=== PATIENT | male | born 1995 | race Caucasian/White ===

== ENCOUNTER 2020-02-06 14:53 | Emergency (ER) | payer MEDICAID ==
[~2020-02-06] VITALS: Ht 162.6 cm; Wt 63.7 kg
[2020-02-06 15:31] LABS: BASOPHILS # (AUTO) 0.1 X10'3 (0-0.2); BASOPHILS % (AUTO) 0.7 % (0-1); EOSINOPHILS # (AUTO) 0.3 X10'3 (0-0.9); EOSINOPHILS % (AUTO) 3.2 % (0-6); HEMATOCRIT 41.9 % (42.0-52.0); HEMOGLOBIN 13.9 g/dl (14.0-17.9); LYMPHOCYTES # (AUTO) 1.2 X10'3 (1.1-4.8); LYMPHOCYTES % (AUTO) 13.7 % (21-51); MEAN CORPUSCULAR HEMOGLOBIN 28.8 PG (27.0-31.0); MEAN CORPUSCULAR HGB CONC 33.2 g/dL (33.0-36.5); MEAN CORPUSCULAR VOLUME 86.6 FL (78-98); MEAN PLATELET VOLUME 6.9 FL (7.4-10.4); MONOCYTES # (AUTO) 0.6 X10'3 (0-0.9); NEUTROPHILS # (AUTO) 6.7 X10'3 (1.8-7.7); NEUTROPHILS % (AUTO) 75.4 % (42-75); PLATELET COUNT 394 X10'3 (140-440); RED BLOOD COUNT 4.83 X10'6 (4.70-6.10); RED CELL DISTRIBUTION WIDTH 12.7 % (11.5-14.5); WHITE BLOOD COUNT 8.9 X10'3 (4.5-11.0)
[2020-02-06 15:46] LABS: ALANINE AMINOTRANSFERASE 20 U/L (12-78); ALBUMIN 3.4 G/DL (3.4-5.0); ALBUMIN/GLOBULIN RATIO 0.9 (1.1-1.5); ALKALINE PHOSPHATASE 73 IU/L (46-116); ANION GAP 9 (8-16); ASPARTATE AMINO TRANSFERASE 19 U/L (10-37); BILIRUBIN,TOTAL 0.4 MG/DL (0.1-1.0); BLOOD UREA NITROGEN 15 MG/DL (7-18); BUN/CREATININE RATIO 18.3 (5.4-32.0); CALCIUM 8.8 MG/DL (8.5-10.1); CHLORIDE 107 MMOL/L (99-107); CREATININE 0.82 MG/DL (0.60-1.10); GLUCOSE 96 MG/DL (70-104); POTASSIUM 3.7 MMOL/L (3.5-5.1); SODIUM 142 MMOL/L (135-145); TOTAL CARBON DIOXIDE 26.5 MMOL/L (24-32); eGFR > 90 ML/MIN
[2020-02-06 15:57] LABS: ETHANOL < 0.010 GM/DL (0.0-0.010)
--- NOTE | 2020-02-06 16:40 | NUR ---
Pt affirms his "turning into a telephone pole" was a suicide attempt. Pt reports increased interpersonal stress including a recent break up with girlfriend. When asked about his mood when he made the impulsive decision to harm himself, he stated, "I was really sad. I have been sad. Like 5 of my friends have . Nobody wants to listen too me. I tell other friends about how I feel and they just say I have issues." When asked who would mourn his had he been successful, pt replied, "I think my mom would be devastated. Maybe my friend's mom, my friend who last year, would be upset too." Probed further, pt reports he continues to experience "bad, sad feelings about the friend I watched a few years ago." He has never seen a therapist for the witnessed traumatic event. Pt has never been prescribed antidepressants or psychotropics of any type. Pt denies H/I and audio/visual hallucinations at this time. Pt smokes TCH, including use of concentrates and vaping on a regular basis. He does not feel as though he has a strong social network. Pt was forthcoming and cooperative, maintaining good eye contact and volunteering details to his responses.
[2020-02-06 17:14] LABS: URINE AMPHETAMINE SCREEN NEGATIVE (Neg); URINE BARBITUATE SCREEN NEGATIVE (Neg); URINE BENZODIAZEPINES SCREEN POSITIVE (Neg); URINE CANNABINOID SCREEN POSITIVE (Neg); URINE COCAINE SCREEN POSITIVE (Neg); URINE METHADONE SCREEN NEGATIVE (Neg); URINE OPIATE SCREEN POSITIVE (Neg); URINE PHENCYCLIDINE SCREEN NEGATIVE (Neg)
[2020-02-06 17:30] VITALS: BP 96/55
--- NOTE | 2020-02-06 18:18 | NUR ---
Pt transferred from ED5 to OF 23 with Chaparro BUCHANAN escorting. All belongings in bag to OF w/ pt.
--- NOTE | 2020-02-06 18:29 | NUR ---
SPOKE WITH PATIENT AND UPDATED HIM ON HIS PLAN OF CARE. PT STATES THAT HE NO LONGER FEELS SUICIDAL BUT IS STILL HAVING INCREASED ANXIETY. WILL UPDATE ED MD AGUILA AND REQUEST ATIVAN; THIS MEDICATION HAS HELPED PT'S ANXIETY IN THE PAST. WILL CONTINUE TO MONITOR.
[2020-02-06] MEDS ORDERED: LORazepam 1 MG tablet PO STA (18:40)
--- NOTE | 2020-02-06 18:50 | NUR ---
PT'S GRANDMOTHER CALLED- PT SPOKE WITH HER. PT CONTINUES TO BE CALM AND IN NO APPARENT DISTRESS. WILL CONTINUE TO MONITOR.
--- NOTE | 2020-02-06 20:14 | NUR ---
PT'S MOTHER IS VISITING AND HAS BROUGHT HIM CLOTHES. PT CRYING AND UPSETY THAT HE CANNOT HAVE ANY OF HIS ITEMS INCLUDING HIS CELL PHONE.
--- NOTE | 2020-02-06 20:26 | NUR ---
CORRECTION: ADOPTED MOTHER WAS VISITING. RECEIVED CALL FROM BIOLOGICAL MOTHER WANTING UPDATE AND VISITING RULES. PT OK WITH GIVING HER UPDATE AND RN INFORMED HER OF VISITING RULES AND HOURS. PT SPEAKING WITH HER NOW.
--- NOTE | 2020-02-06 20:34 | NUR ---
PT BEING EVALUATED BY TONNY BUCHANAN WITH [facility]
--- NOTE | 2020-02-06 21:06 | NUR ---
BREAKING PRIMARY NURSE AT THIS TIME ,PT RESTING IN BED QUIETLY,WILL CONT TO MONITOR.
--- NOTE | 2020-02-06 21:31 | NUR ---
BRETT- STEP MOTHER- CAN BE NOTIFIED WITH INFORMATION AT [phone]
--- NOTE | 2020-02-06 21:40 | NUR ---
SPOKE WITH TONNY BUCHANAN WITH [facility]; HE SPOKE WITH KARY AGUILA AND HE WILL BE RELEASING HIM BACK TO ADOPTIVE MOM BRETT. RN WILL CONTINUE TO MONITOR UNTIL D/C.
--- NOTE | 2020-02-06 21:52 | NUR ---
SPOKE WITH TONNY BUCHANAN; HE SPOKE WITH PATIENT AND GAVE OK FOR BRETT/ ADOPTIVE MOTHER TO BE CALLED TO [facility] PT. WILL CALL HER.
== END 2020-02-06 22:15 ==
LOC: ER 14:54
DX: R45.851 Suicidal ideations (principal); M25.531 Pain in right wrist; M79.644 Pain in right finger(s); V49.49XA Driver injured in collision with other motor vehicles in traffic accident, initial encounter; Y93.89 Activity, other specified; Y92.410 Unspecified street and highway as the place of occurrence of the external cause; Y99.8 Other external cause status
CPT/HCPCS: 36415; 71045; 80053; 80305; 80320; 84443; 85025; 99285

== ENCOUNTER 2021-12-30 16:58 | Emergency (ER) | payer MEDICAID ==
[~2021-12-30] VITALS: Ht 162.6 cm; Wt 63.6 kg
[2021-12-30] MEDS ORDERED: LIDOcaine 1.5% w/epinephrine 1:200,000 5ml ampul IJ ONE (17:30)
[2021-12-30] MEDS ORDERED: TETanus/Pertussis (Acell)/Diphther VAC/PF (Tdap-Adult) 0.5ml syringe IMVAC ONE (17:30)
[2021-12-30 17:53] VITALS: BP 113/70
== END 2021-12-30 18:28 | disposition home or self-care (01) ==
LOC: ER 16:59
DX: S01.01XA Laceration without foreign body of scalp, initial encounter (principal); F17.200 Nicotine dependence, unspecified, uncomplicated; F12.90 Cannabis use, unspecified, uncomplicated; Z20.3 Contact with and (suspected) exposure to rabies; W19.XXXA Unspecified fall, initial encounter; Y93.89 Activity, other specified; Y92.89 Other specified places as the place of occurrence of the external cause; Y99.8 Other external cause status
CPT/HCPCS: 12001; 90471; 90715; 99283

== ENCOUNTER 2023-08-12 13:09 | Inpatient (IN) | payer MEDICAID ==
[~2023-08-12] VITALS: Ht 162.6 cm; Wt 63.6 kg
[2023-08-12] MEDS ORDERED: normal saline 1000ML IV soln IVB ONE (14:05)
[2023-08-12] MEDS ORDERED: LIDOCAINE 1%/EPI 1:100,000 inj. 10 ML multi-dose vial IJ ONE (14:10)
[2023-08-12] MEDS ORDERED: ampicillin/sulbac 3gm/NS 100ml 100 ML IV STA (14:36)
[2023-08-12] MEDS ORDERED: iohexol 300mg/ml 100ml inj. ONE (14:44)
[2023-08-12 14:57] LABS: BASOPHILS # (AUTO) 0.1 X10'3 (0-0.2); BASOPHILS % (AUTO) 0.8 % (0-1); EOSINOPHILS # (AUTO) 0.2 X10'3 (0-0.9); EOSINOPHILS % (AUTO) 1.7 % (0-6); HEMATOCRIT 36.4 % (42.0-52.0); HEMOGLOBIN 11.6 g/dl (14.0-17.9); LYMPHOCYTES # (AUTO) 0.8 X10'3 (1.1-4.8); LYMPHOCYTES % (AUTO) 7.4 % (21-51); MEAN CORPUSCULAR HEMOGLOBIN 26.2 PG (27.0-31.0); MEAN CORPUSCULAR HGB CONC 31.9 g/dL (33.0-36.5); MEAN CORPUSCULAR VOLUME 82.1 FL (78-98); MEAN PLATELET VOLUME 6.2 FL (7.4-10.4); MONOCYTES # (AUTO) 0.6 X10'3 (0-0.9); NEUTROPHILS # (AUTO) 9.8 X10'3 (1.8-7.7); NEUTROPHILS % (AUTO) 85.1 % (42-75); PLATELET COUNT 566 X10'3 (140-440); RED BLOOD COUNT 4.44 X10'6 (4.70-6.10); RED CELL DISTRIBUTION WIDTH 12.9 % (11.5-14.5); WHITE BLOOD COUNT 11.5 X10'3 (4.5-11.0)
[2023-08-12 15:12] LABS: ALANINE AMINOTRANSFERASE 20 U/L (12-78); ALBUMIN 2.7 G/DL (3.4-5.0); ALBUMIN/GLOBULIN RATIO 0.6 (1.1-1.5); ALKALINE PHOSPHATASE 96 IU/L (46-116); ANION GAP 6 (8-16); ASPARTATE AMINO TRANSFERASE 19 U/L (10-37); BILIRUBIN,TOTAL 0.2 MG/DL (0.1-1.0); BLOOD UREA NITROGEN 13 MG/DL (7-18); BUN/CREATININE RATIO 23.6 (10.0-20.0); C-REACTIVE PROTEIN 6.13 MG/DL (0.0-0.5); CALCIUM 8.9 MG/DL (8.5-10.1); CHLORIDE 100 MMOL/L (99-107); CREATININE 0.55 MG/DL (0.60-1.10); GLUCOSE 77 MG/DL (70-104); POTASSIUM 4.1 MMOL/L (3.5-5.1); SODIUM 134 MMOL/L (135-145); TOTAL CARBON DIOXIDE 27.8 MMOL/L (24-32); TOTAL PROTEIN 7.4 G/DL (6.4-8.2); eCRCL 164 ML/MIN; eGFR > 90 ML/MIN
[2023-08-12] MEDS ORDERED: acetaminophen 1,000mg/100ml IV 100 ML IV SCH (15:35)
[2023-08-12] MEDS ORDERED: acetaminophen 1,000mg/100ml IV 100 ML IV ONE (15:37)
[2023-08-12] MEDS ORDERED: magnesium 2GM in 50ml NS 50 ML IV PRN (17:30)
[2023-08-12] MEDS ORDERED: potassium Cl 20 mEq SR tablet PO PRN ×2 (17:30)
[2023-08-12] MEDS ORDERED: mag hydrox/Alum hydrox/simeth 30ml oral suspension PO PRN (17:30)
[2023-08-12] MEDS ORDERED: LORazepam 2 mg/ml vial IV PRN (17:30)
[2023-08-12] MEDS ORDERED: magnesium hydroxide 30ml (MOM) UD suspension PO PRN (17:30)
[2023-08-12] MEDS ORDERED: ondansetron 4mg rapidly disintigrating tab PO PRN (17:30)
[2023-08-12] MEDS ORDERED: magnesium Cl slow-release 64mg tablet PO PRN (17:30)
[2023-08-12] MEDS: normal saline 1000ml 1,000 ML IV SCH ×2 (17:30→23:24)
[2023-08-12] MEDS ORDERED: HYDROcodone/acetaminophen 5mg/325mg tablet PO PRN (17:30)
[2023-08-12] MEDS ORDERED: bisacodyl 10mg suppository rectal RC PRN (17:30)
[2023-08-12] MEDS ORDERED: haloperidol lactate 5mg/ml inj IM PRN (17:30)
[2023-08-12] MEDS ORDERED: diphenhydrAMINE 50 mg/ml inj IV PRN (17:30)
[2023-08-12] MEDS ORDERED: acetaminophen 650mg rectal suppository RC PRN (17:30)
[2023-08-12] MEDS ORDERED: acetaminophen 325mg tablet PO PRN ×2 (17:30)
[2023-08-12] MEDS ORDERED: metoclopramide 5 mg/ml inj IV PRN (17:30)
[2023-08-12] MEDS ORDERED: potassium Cl 40MEQ/1/2NS 520ml 520 ML IV PRN (17:30)
[2023-08-12] MEDS ORDERED: magnesium 4gm in 100ml NS 100 ML IV PRN (17:30)
[2023-08-12] MEDS ORDERED: HYDROmorphone/PF 0.2 MG/ML SYRINGE IV PRN (17:30)
[2023-08-12] MEDS ORDERED: HYDROmorphone inj. 0.5 MG/0.5 ML DISP.SYRIN IV PRN (17:30)
[2023-08-12] MEDS ORDERED: HYDROcodone/acetaminophen 5mg/325mg tablet PO ONE (17:40)
[2023-08-12] MEDS: docusate sod 100mg capsule PO SCH (19:42)
[2023-08-12] MEDS: vancomycin/NS 1 GM ADD-VANTAGE 250 ML IV SCH ×2 (19:42→23:24)
[2023-08-12] MEDS: K and/or MAG REPLACEMENT MC SCH (20:00)
[2023-08-12 21:40] VITALS: BP 119/76; PULSE 87; RESP 16; TEMP 98.8; O2SAT 100
[2023-08-12 21:45] VITALS: RESP 16; O2SAT 100
[2023-08-12] MEDS: HYDROcodone/acetaminophen 10/325mg tab PO PRN (23:37)
[2023-08-13] MEDS: piperacillin/tazo 3.375gm/50ml 50 ML IV SCH ×2 (01:31→09:54)
[2023-08-13] MEDS: temazepam 15mg capsule PO PRN ×2 (01:53→22:07)
[2023-08-13] MEDS: LORazepam 1 MG tablet PO PRN (03:44)
[2023-08-13 06:00] VITALS: BP 126/86; PULSE 91; RESP 20; TEMP 97.6; O2SAT 100
[2023-08-13 06:15] LABS: HEMOGLOBIN 12.2 g/dl (14.0-17.9); LYMPHOCYTES # (AUTO) 1.1 X10'3 (1.1-4.8); MONOCYTES # (AUTO) 0.5 X10'3 (0-0.9); NEUTROPHILS # (AUTO) 7.8 X10'3 (1.8-7.7); RED CELL DISTRIBUTION WIDTH 12.7 % (11.5-14.5)
[2023-08-13 06:18] LABS: BASOPHILS % (AUTO) 0.4 % (0-1); EOSINOPHILS % (AUTO) 0.5 % (0-6); LYMPHOCYTES % (AUTO) 11.4 % (21-51); MEAN CORPUSCULAR HEMOGLOBIN 26.9 PG (27.0-31.0); MEAN CORPUSCULAR HGB CONC 33.1 g/dL (33.0-36.5); MEAN CORPUSCULAR VOLUME 81.3 FL (78-98); MEAN PLATELET VOLUME 6.4 FL (7.4-10.4); MONOCYTES % (AUTO) 5.1 % (2-12); NEUTROPHILS % (AUTO) 82.6 % (42-75); PLATELET COUNT 608 X10'3 (140-440); RED BLOOD COUNT 4.55 X10'6 (4.70-6.10); WHITE BLOOD COUNT 9.4 X10'3 (4.5-11.0)
[2023-08-13 06:19] LABS: ALANINE AMINOTRANSFERASE 22 U/L (12-78); ALBUMIN 2.6 G/DL (3.4-5.0); ALBUMIN/GLOBULIN RATIO 0.5 (1.1-1.5); ALKALINE PHOSPHATASE 98 IU/L (46-116); ANION GAP 8 (8-16); ASPARTATE AMINO TRANSFERASE 22 U/L (10-37); BILIRUBIN,TOTAL 0.4 MG/DL (0.1-1.0); BLOOD UREA NITROGEN 7 MG/DL (7-18); BUN/CREATININE RATIO 11.9 (10.0-20.0); CALCIUM 8.8 MG/DL (8.5-10.1); CHLORIDE 99 MMOL/L (99-107); CREATININE 0.59 MG/DL (0.60-1.10); GLUCOSE 108 MG/DL (70-104); MAGNESIUM 1.7 MG/DL (1.5-2.4); POTASSIUM 3.3 MMOL/L (3.5-5.1); SODIUM 133 MMOL/L (135-145); TOTAL CARBON DIOXIDE 25.6 MMOL/L (24-32); TOTAL PROTEIN 7.4 G/DL (6.4-8.2); eCRCL 153 ML/MIN; eGFR > 90 ML/MIN
[2023-08-13] MEDS: vancomycin/NS 1 GM ADD-VANTAGE 250 ML IV SCH ×2 (07:40→16:00)
[2023-08-13] MEDS: K and/or MAG REPLACEMENT MC SCH ×2 (08:00→20:00)
[2023-08-13] MEDS: ondansetron/PF 4mg/2ml inj IV PRN (09:44)
[2023-08-13] MEDS ORDERED: diazepam inj 5 MG/ML inj. IV ONE (09:55)
[2023-08-13] MEDS ORDERED: diazepam inj 5 MG/ML inj. IV PRN (09:55)
[2023-08-13 10:00] VITALS: BP 117/66; PULSE 80; RESP 15; TEMP 98; O2SAT 97
[2023-08-13] MEDS: docusate sod 100mg capsule PO SCH ×2 (10:24→20:00)
[2023-08-13] MEDS ORDERED: NO HOME MEDS (12:53)
[2023-08-13 13:35] VITALS: BP 113/71; PULSE 80; RESP 20; O2SAT 97
[2023-08-13] MEDS ORDERED: dexamethasone 4mg/ml inj IV SCH (14:00)
[2023-08-13] MEDS: ampicillin inj 2 GM in normal saline 100ml IV soln 100 ML IV SCH ×2 (14:00→21:56)
[2023-08-13] MEDS ORDERED: VANCOMYCIN LEVEL IV ONE (15:30)
[2023-08-13] MEDS: cefepime 2g/NS 100ml ADVANTAGE 100 ML IV SCH (16:00)
[2023-08-13 18:00] VITALS: BP 110/71; PULSE 104; RESP 17; TEMP 97.9; O2SAT 97
[2023-08-13 20:40] VITALS: RESP 18; O2SAT 100
[2023-08-13] MEDS: dexamethasone sod phosphate 10mg/ml inj IV SCH (21:56)
[2023-08-13 22:00] VITALS: BP 111/69; PULSE 95; RESP 18; TEMP 98.3; O2SAT 100
[2023-08-13] MEDS: HYDROcodone/acetaminophen 10/325mg tab PO PRN (22:07)
[2023-08-14] MEDS: cefepime 2g/NS 100ml ADVANTAGE 100 ML IV SCH ×4 (00:02→23:08)
[2023-08-14] MEDS: vancomycin/NS 1 GM ADD-VANTAGE 250 ML IV SCH (00:37)
[2023-08-14] MEDS: ampicillin inj 2 GM in normal saline 100ml IV soln 100 ML IV SCH ×4 (02:17→19:31)
[2023-08-14] MEDS: dexamethasone sod phosphate 10mg/ml inj IV SCH ×4 (02:17→19:38)
[2023-08-14 06:00] VITALS: BP 125/81; PULSE 101; RESP 14; TEMP 98.9; O2SAT 100
[2023-08-14 06:02] LABS: EOSINOPHILS % (AUTO) 0 % (0-6); HEMOGLOBIN 12.8 g/dl (14.0-17.9); LYMPHOCYTES # (AUTO) 0.5 X10'3 (1.1-4.8); MONOCYTES # (AUTO) 0.1 X10'3 (0-0.9); MONOCYTES % (AUTO) 0.7 % (2-12)
[2023-08-14 06:04] LABS: BASOPHILS % (AUTO) 0 % (0-1); HEMATOCRIT 39.3 % (42.0-52.0); LYMPHOCYTES % (AUTO) 5.3 % (21-51); MEAN CORPUSCULAR HEMOGLOBIN 26.3 PG (27.0-31.0); MEAN CORPUSCULAR HGB CONC 32.5 g/dL (33.0-36.5); MEAN CORPUSCULAR VOLUME 80.9 FL (78-98); MEAN PLATELET VOLUME 6.2 FL (7.4-10.4); NEUTROPHILS # (AUTO) 9.7 X10'3 (1.8-7.7); PLATELET COUNT 726 X10'3 (140-440); RED BLOOD COUNT 4.86 X10'6 (4.70-6.10); RED CELL DISTRIBUTION WIDTH 12.6 % (11.5-14.5); WHITE BLOOD COUNT 10.3 X10'3 (4.5-11.0)
[2023-08-14 06:18] LABS: ALANINE AMINOTRANSFERASE 22 U/L (12-78); ALBUMIN 2.6 G/DL (3.4-5.0); ALBUMIN/GLOBULIN RATIO 0.6 (1.1-1.5); ALKALINE PHOSPHATASE 96 IU/L (46-116); ANION GAP 11 (8-16); ASPARTATE AMINO TRANSFERASE 14 U/L (10-37); BILIRUBIN,TOTAL 0.3 MG/DL (0.1-1.0); BLOOD UREA NITROGEN 13 MG/DL (7-18); BUN/CREATININE RATIO 21.7 (10.0-20.0); CALCIUM 9.2 MG/DL (8.5-10.1); CHLORIDE 99 MMOL/L (99-107); GLUCOSE 133 MG/DL (70-104); MAGNESIUM 1.9 MG/DL (1.5-2.4); POTASSIUM 3.6 MMOL/L (3.5-5.1); SODIUM 132 MMOL/L (135-145); TOTAL CARBON DIOXIDE 22.3 MMOL/L (24-32); TOTAL PROTEIN 7.1 G/DL (6.4-8.2); eCRCL 151 ML/MIN; eGFR > 90 ML/MIN
[2023-08-14] MEDS: K and/or MAG REPLACEMENT MC SCH ×2 (07:36→20:00)
[2023-08-14 07:42] VITALS: RESP 14; O2SAT 100
[2023-08-14] MEDS: docusate sod 100mg capsule PO SCH ×2 (07:44→19:30)
[2023-08-14] MEDS: HYDROcodone/acetaminophen 10/325mg tab PO PRN (07:47)
[2023-08-14] MEDS: LORazepam 1 MG tablet PO PRN ×2 (09:06→22:18)
[2023-08-14 10:00] VITALS: BP 124/72; PULSE 97; RESP 14; TEMP 98.7; O2SAT 100
[2023-08-14] MEDS: VANCOMYCIN 1,500MG in NS 300ml IVPB IV SCH ×2 (10:52→17:24)
[2023-08-14] MEDS ORDERED: iohexol 300mg/ml 100ml inj. ONE (11:00)
[2023-08-14] MEDS ORDERED: buprenorphine/naloxone 8MG-2MG SUBlingual film SL ONE (11:35)
[2023-08-14] MEDS: normal saline 1000ml 1,000 ML IV SCH (17:30)
[2023-08-14 18:00] VITALS: BP 115/68; PULSE 93; RESP 14; TEMP 98.9; O2SAT 98
[2023-08-14] MEDS: buprenorphine/naloxone 8MG-2MG SUBlingual film SL SCH (19:27)
[2023-08-14] MEDS: nicotine 21mg patch - 24 hr TD SCH (19:29)
[2023-08-14 20:00] VITALS: RESP 18; O2SAT 100
[2023-08-14 22:00] VITALS: BP 112/65; PULSE 79; RESP 18; TEMP 98.6; O2SAT 100
[2023-08-15] MEDS: VANCOMYCIN 1,500MG in NS 300ml IVPB IV SCH ×2 (00:31→09:00)
[2023-08-15] MEDS: dexamethasone sod phosphate 10mg/ml inj IV SCH ×4 (02:23→19:23)
[2023-08-15] MEDS: ampicillin inj 2 GM in normal saline 100ml IV soln 100 ML IV SCH ×4 (02:51→19:23)
[2023-08-15 06:30] VITALS: BP 113/67; PULSE 73; RESP 19; TEMP 98.5; O2SAT 98
[2023-08-15 06:50] LABS: EOSINOPHILS % (AUTO) 0 % (0-6); HEMOGLOBIN 12.3 g/dl (14.0-17.9); LYMPHOCYTES # (AUTO) 0.9 X10'3 (1.1-4.8); LYMPHOCYTES % (AUTO) 4.6 % (21-51); MONOCYTES # (AUTO) 0.4 X10'3 (0-0.9); RED CELL DISTRIBUTION WIDTH 12.9 % (11.5-14.5); WHITE BLOOD COUNT 19.4 X10'3 (4.5-11.0)
[2023-08-15 06:52] LABS: BASOPHILS # (AUTO) 0.5 X10'3 (0-0.2); BASOPHILS % (AUTO) 2.5 % (0-1); HEMATOCRIT 36.7 % (42.0-52.0); MEAN CORPUSCULAR HEMOGLOBIN 26.9 PG (27.0-31.0); MEAN CORPUSCULAR HGB CONC 33.5 g/dL (33.0-36.5); MEAN CORPUSCULAR VOLUME 80.5 FL (78-98); MEAN PLATELET VOLUME 6.3 FL (7.4-10.4); MONOCYTES % (AUTO) 1.9 % (2-12); NEUTROPHILS # (AUTO) 17.6 X10'3 (1.8-7.7); PLATELET COUNT 662 X10'3 (140-440); RED BLOOD COUNT 4.56 X10'6 (4.70-6.10)
[2023-08-15 07:05] LABS: ALANINE AMINOTRANSFERASE 16 U/L (12-78); ALBUMIN 2.4 G/DL (3.4-5.0); ALBUMIN/GLOBULIN RATIO 0.5 (1.1-1.5); ALKALINE PHOSPHATASE 83 IU/L (46-116); ANION GAP 8 (8-16); ASPARTATE AMINO TRANSFERASE 10 U/L (10-37); BILIRUBIN,TOTAL 0.3 MG/DL (0.1-1.0); BLOOD UREA NITROGEN 12 MG/DL (7-18); BUN/CREATININE RATIO 22.2 (10.0-20.0); CALCIUM 8.9 MG/DL (8.5-10.1); CHLORIDE 99 MMOL/L (99-107); CREATININE 0.54 MG/DL (0.60-1.10); GLUCOSE 127 MG/DL (70-104); MAGNESIUM 1.9 MG/DL (1.5-2.4); POTASSIUM 3.9 MMOL/L (3.5-5.1); SODIUM 132 MMOL/L (135-145); TOTAL CARBON DIOXIDE 25.2 MMOL/L (24-32); TOTAL PROTEIN 6.9 G/DL (6.4-8.2); eCRCL 167 ML/MIN; eGFR > 90 ML/MIN
[2023-08-15 08:00] VITALS: RESP 14; O2SAT 97
[2023-08-15] MEDS: K and/or MAG REPLACEMENT MC SCH ×2 (08:00→20:00)
[2023-08-15] MEDS: nicotine 21mg patch - 24 hr TD SCH (08:29)
[2023-08-15] MEDS: buprenorphine/naloxone 8MG-2MG SUBlingual film SL SCH ×2 (08:29→19:23)
[2023-08-15] MEDS: docusate sod 100mg capsule PO SCH ×2 (08:29→19:22)
[2023-08-15] MEDS: cefepime 2g/NS 100ml ADVANTAGE 100 ML IV SCH ×3 (08:30→23:17)
[2023-08-15] MEDS ORDERED: VANCOMYCIN LEVEL IV ONE (08:30)
[2023-08-15 10:00] VITALS: BP 109/63; PULSE 83; RESP 20; TEMP 99.2; O2SAT 98
[2023-08-15] MEDS ORDERED: diazepam inj 5 MG/ML inj. IV ONE (11:05)
[2023-08-15] MEDS ORDERED: LIDOcaine 1% 30ml preserv. free vial ONE (11:05)
[2023-08-15] MEDS: ondansetron/PF 4mg/2ml inj IV PRN (11:47)
[2023-08-15 12:34] LABS: GLUCOSE,CSF 80 MG/DL (40-75); TOTAL PROTEIN,CSF 54 MG/DL (15-45)
[2023-08-15 12:36] LABS: APPEARANCE,CSF CLEAR; CSF SUPERNATANT COLOR COLORLESS; CSF VOLUME 7 ML
[2023-08-15 12:37] LABS: CSF RBC 2 /CU MM (0); CSF WBC CT 1 /CU MM (0-5); TUBE# COUNTED 3
[2023-08-15] MEDS: HYDROcodone/acetaminophen 10/325mg tab PO PRN ×2 (14:17→19:23)
[2023-08-15] MEDS: vancomycin 1,750 MG in NS 350ml IV soln IV SCH (16:54)
[2023-08-15] MEDS: LORazepam 1 MG tablet PO PRN (16:59)
[2023-08-15 20:00] VITALS: RESP 19
[2023-08-15 22:00] VITALS: BP 113/60; PULSE 85; RESP 16; TEMP 98.9; O2SAT 97
[2023-08-16] MEDS: vancomycin 1,750 MG in NS 350ml IV soln IV SCH ×2 (00:15→09:59)
[2023-08-16] MEDS: LORazepam 1 MG tablet PO PRN ×2 (00:15→10:07)
[2023-08-16] MEDS: dexamethasone sod phosphate 10mg/ml inj IV SCH ×2 (02:20→08:02)
[2023-08-16] MEDS: ampicillin inj 2 GM in normal saline 100ml IV soln 100 ML IV SCH ×2 (02:21→08:03)
[2023-08-16 06:00] VITALS: BP 114/63; PULSE 68; RESP 16; TEMP 98.4; O2SAT 99
[2023-08-16] MEDS: K and/or MAG REPLACEMENT MC SCH (08:00)
[2023-08-16] MEDS: buprenorphine/naloxone 8MG-2MG SUBlingual film SL SCH (08:02)
[2023-08-16] MEDS: docusate sod 100mg capsule PO SCH (08:02)
[2023-08-16] MEDS: nicotine 21mg patch - 24 hr TD SCH (08:04)
[2023-08-16 08:54] LABS: EOSINOPHILS % (AUTO) 0 % (0-6); MEAN PLATELET VOLUME 6.3 FL (7.4-10.4); MONOCYTES # (AUTO) 0.6 X10'3 (0-0.9)
[2023-08-16 08:57] LABS: BASOPHILS # (AUTO) 0.1 X10'3 (0-0.2); BASOPHILS % (AUTO) 0.3 % (0-1); HEMATOCRIT 39.4 % (42.0-52.0); HEMOGLOBIN 12.7 g/dl (14.0-17.9); LYMPHOCYTES % (AUTO) 5.8 % (21-51); MEAN CORPUSCULAR HEMOGLOBIN 26.5 PG (27.0-31.0); MEAN CORPUSCULAR HGB CONC 32.2 g/dL (33.0-36.5); MEAN CORPUSCULAR VOLUME 82.2 FL (78-98); MONOCYTES % (AUTO) 3.8 % (2-12); NEUTROPHILS # (AUTO) 15.4 X10'3 (1.8-7.7); NEUTROPHILS % (AUTO) 90.1 % (42-75); PLATELET COUNT 658 X10'3 (140-440); RED BLOOD COUNT 4.79 X10'6 (4.70-6.10); RED CELL DISTRIBUTION WIDTH 13.1 % (11.5-14.5)
[2023-08-16] MEDS: cefepime 2g/NS 100ml ADVANTAGE 100 ML IV SCH (09:01)
[2023-08-16 09:06] LABS: ALANINE AMINOTRANSFERASE 13 U/L (12-78); ALBUMIN 2.5 G/DL (3.4-5.0); ALBUMIN/GLOBULIN RATIO 0.6 (1.1-1.5); ALKALINE PHOSPHATASE 83 IU/L (46-116); ANION GAP 9 (8-16); ASPARTATE AMINO TRANSFERASE 9 U/L (10-37); BILIRUBIN,TOTAL 0.2 MG/DL (0.1-1.0); BLOOD UREA NITROGEN 11 MG/DL (7-18); BUN/CREATININE RATIO 17.5 (10.0-20.0); CALCIUM 8.9 MG/DL (8.5-10.1); CHLORIDE 98 MMOL/L (99-107); CREATININE 0.63 MG/DL (0.60-1.10); GLUCOSE 126 MG/DL (70-104); MAGNESIUM 1.8 MG/DL (1.5-2.4); POTASSIUM 3.6 MMOL/L (3.5-5.1); SODIUM 132 MMOL/L (135-145); TOTAL CARBON DIOXIDE 25.4 MMOL/L (24-32); TOTAL PROTEIN 6.7 G/DL (6.4-8.2); eCRCL 144 ML/MIN; eGFR > 90 ML/MIN
[2023-08-16 10:00] VITALS: BP 102/44; PULSE 81; RESP 17; TEMP 97.9; O2SAT 96
[2023-08-16] MEDS ORDERED: VANCOMYCIN LEVEL IV ONE (16:30)
[2023-08-16] MEDS ORDERED: DOXY-224 PO (16:48)
== END 2023-08-16 13:05 | disposition left against medical advice (07) | DRG 383 ==
LOC: ER 13:09 → ED HOLD 17:33 → ORTHO 4S 21:40
PROVIDERS: ADMIT Family Medicine; ATTEND Family Medicine
PROC: 0Y9C0ZZ Drainage of Right Upper Leg, Open Approach (ICD-10-PCS; principal; 2023-08-12)
PROC: BQ2 Imaging, Non-Axial Lower Bones, Computerized Tomography (CT Scan) (ICD-10-PCS; 2023-08-12)
PROC: BQ201ZZ Computerized Tomography (CT Scan) of Right Hip using Low Osmolar Contrast (ICD-10-PCS; 2023-08-12)
PROC: 4A00X4Z Measurement of Central Nervous Electrical Activity, External Approach (ICD-10-PCS; 2023-08-14)
PROC: BQ2 Imaging, Non-Axial Lower Bones, Computerized Tomography (CT Scan) (ICD-10-PCS; 2023-08-14)
PROC: BQ201ZZ Computerized Tomography (CT Scan) of Right Hip using Low Osmolar Contrast (ICD-10-PCS; 2023-08-14)
PROC: 009U3ZX Drainage of Spinal Canal, Percutaneous Approach, Diagnostic (ICD-10-PCS; 2023-08-15)
PROC: B01B1ZZ Fluoroscopy of Spinal Cord using Low Osmolar Contrast (ICD-10-PCS; 2023-08-15)
DX: L03.115 Cellulitis of right lower limb (principal); R56.9 Unspecified convulsions; F95.2 Tourette's disorder; E87.6 Hypokalemia; F17.210 Nicotine dependence, cigarettes, uncomplicated; L02.415 Cutaneous abscess of right lower limb; F19.10 Other psychoactive substance abuse, uncomplicated; Z53.21 Procedure and treatment not carried out due to patient leaving prior to being seen by health care provider; Z59.00 Homelessness unspecified; Z91.148 Patient's other noncompliance with medication regimen for other reason
CPT/HCPCS: 36415; 62328; 62329; 70450; 73700; 73701; 80053; 80202; 82945; 82948; 83605; 83735; 84145; 84157; 85025; 86140; 87015; 87040; 87070; 87077; 87081; 87186; 89051; 95816; 99285; A4615; A4620; A6213; A6258; A6407; A6449; G0378; J0131; J0290; J0295; J0692; J1100; J2405; J2543; J3360; J3370; J3490; J7030; J7040; J7042; Q9967